=== PATIENT | male | born 1945 | race Caucasian/White ===

== ENCOUNTER → 2022-03-30 01:18 | Outpatient (CLI) | payer BC, SELFPAY ==
--- NOTE | 2022-03-30 09:00 | ETT_ITS ---
APPROVED REPORT Exam: Exercise Treadmill Patient Location: Out-Patient Room/Bed: Stress Nurse: Linda Disla RN Ordering Provider:CHAUNCEY WU, Contact Number: [phone] BMI: 27.02 Baseline Rhythm: Sinus Rhythm Comment: inverted T waves in leads III and V6; frequent PVCs, intermittent ventricular trigeminy Indications: CAD, ANGINA Medical History Medical History: GERD, HLD, HTN, Major depressive disorder, HERON, CVA Cardiac Medications: Atorvastatin, Hydrochlorothiazide, Losartan, Apixaban, Clopidogrel, Metoprolol s uccinate, Pantoprazole, Allergies: Codeine Cardiac Risk Factors: HTN, Hyperlipidemia, Smoking (former), CVD Previous Cardiac Procedures: PCI w/ stent in 2004 Pretest Chest Pain Characteristics: None Exercise History: Indeterminate Physical Disabilities: None Lung Sounds: Clear to auscultation Heart Sounds: Regular Stress Test Details Test: Exercise stress testing was performed using a Klever protocol. Rest Stress HR Resting HR Supine: 63 bpm Max Heart Rate (APMHR): 141 bpm Resting HR Standin bpm Target HR (85% APMHR): 119 bpm Max HR Achieved: 136 bpm % of APMHR: 96 Recovery HR: 80 bpm HR response to stress: Normal HR response to stress Comment: Patient did not take any of his prescribed medications this morning. BP Resting BP Supine: 164/80 mmHg Resting BP Standin/82 mmHg Max BP: 182/80 mmHg Recovery BP: 158/80 mmHg BP response to stress: Normal blood pressure response to stress. Comment: Hypertensive at baseline. Patient did not take any of his prescribed medications ben castaneda ECG Resting ECG: Sinus Rhythm Ectopy: frequent Comment: Inverted T waves in leads III and V6 Stress ECG: Sinus Tachycardia ST Change: No significant ST segment changes noted Arrhythmia: PACs, mulitfocal PVCs, PVC pairs, intermittent ventricular bigeminy Comment: Inverted T waves in leads III and V6 Recovery ECG: Sinus Rhythm, Recovery ST Change: No significant ST segment changes noted Recovery Arrhythmia: Multifocal PVCs, PVC pairs, intermittent ventricular bigeminy and trigeminy Comment: Inverted T waves in leads III and V6 Clinical Reason for Termination: Fatigue Stress Symptoms: General Fatigue Exercise duration: 7 min24 sec Highest Stage Reached: Stage 3: 3.4 mph at 14% grade. Exercise capacity: 9.22 METs Conroy Treadmill Score: 5.7 Rate Pressure Product: [id number] Stress ECG Conclusion 1. The resting electrocardiogram was within normal limits 2. Patient exercised on the Klever protocol completed a workload of 9.22 METS, stopping due to fatigue 3. Normal heart rate and blood pressure response to exercise. Patient achieved 96% of predicted hear t rate for age 4. There was no electrocardiographic evidence of myocardial ischemia 5. PVCs were noted Conroy Treadmill Score is 5.7 which is Low risk. Stress Test Summary STAGE Time (mins) Speed (mph) Grade (%) HR BP SpO2 SYMPTOMS METS Supine 63 164/80 Standing 81 140/82 1 3 1.7 10 93 158/72 95 4.5 2 6 2.5 12 112 162/84 7 1 min recovery 118 172/78 94 3 min recovery 87 182/80 6 min recovery 80 158/80 Patient did not endorse any symptoms during stress test.
== END ==
PROVIDERS: PCP Internal Medicine; Visit Provider Internal Medicine
DX: I25.10 Atherosclerotic heart disease of native coronary artery without angina pectoris (principal)
CPT/HCPCS: 93017